=== PATIENT | female | born 1945 | race Caucasian/White ===

== ENCOUNTER → 2020-02-25 | Outpatient (CLI) | payer BC, MEDICARE ==
[2020-02-25 08:01] VITALS: BP 160/85
[2020-02-25] MEDS: DENOSUMAB 60 MG/ML DISP.SYRIN. SQ ONE (08:07)
--- NOTE | 2020-02-25 08:34 | NUR ---
NURSING NOTE PT AMBULATED TO ROOM 129 FOR OUTPATIENT INJECTION. PT VITALS OBTAINED. SUBCUTANEOUS INJECTION GIVEN IN POSTERIOR RIGHT UPPER ARM. PT TOLERATED WELL. PT GIVEN INJECTION INFORMATION ABOUT PROLIA TO TAKE HOME WITH HER. NO COMPLICATIONS. DESIREE PAL.
== END | disposition home or self-care (01) ==
LOC: OPINF 07:47
PROVIDERS: ATTEND Family Medicine
DX: M81.0 Age-related osteoporosis without current pathological fracture (principal)
CPT/HCPCS: 96372; J0897

== ENCOUNTER → 2021-02-20 | Outpatient (CLI) | payer BC, MEDICARE ==
[2020-02-25 08:01] VITALS: BP 160/85
--- NOTE | 2021-02-24 14:43 | RAD ---
EXAM: Bilateral digital screening mammogram with tomosynthesis. HISTORY: 75-year-old female presents for screening mammography. TECHNIQUE: Full-field digital craniocaudal and mediolateral oblique 2D and 3D tomosynthesis images of both breasts are obtained for evaluation. Computer aided detection was applied. COMPARISON: 11/02/2019 and 06/07/2018 and 11/17/2010 BREAST PARENCHYMAL DENSITY: Level C - Heterogeneously dense. FINDINGS: There is no new suspicious mass, microcalcification or region of architectural distortion. There is stable benign asymmetry within the 6:00 subareolar aspect of the left breast in the cranioca udal projection. IMPRESSION: BI-RADS Category 2: Benign finding(s). RECOMMENDATION: Annual mammography is recommended. If your mammogram demonstrates that you have dense breast tissue, which could hide abnormalities, and if you have other risk factors for breast cancer that have been identified, you might benefit from s upplemental screening tests that may be suggested by your ordering physician. Dense breast tissue, i n and of itself, is a relatively common condition. This information is not provided to cause undue c oncern, but rather to raise your awareness and to promote discussion with your physician regarding th e presence of other risk factors, in addition to dense breast tissue. A report of your mammography re sults will be sent to you and your physician. You should contact your physician if you have any ques tions or concerns regarding this report. Mammography is a sensitive method for finding small breast cancers, but it does not detect them all a nd is not a substitute for careful clinical examination. A negative mammogram does not negate a clin ically suspicious finding and should not result in delay in biopsying a clinically suspicious abnorma lity. PQRS compliance statement - Patient information was entered into a reminder system with a target due date for the next mammogram. "Our facility is accredited by the [employer] Mammography [employer]." Electronically signed by: Jasmin Colon MD (02/24/2021 2:40 PM) [id number]
== END ==
LOC: MAMMO 08:26
PROVIDERS: ATTEND Family Medicine
DX: Z12.31 Encounter for screening mammogram for malignant neoplasm of breast (principal)
CPT/HCPCS: 77063; 77067